=== PATIENT | female | born 1980 | race American Indian/Alaskan Native ===

== ENCOUNTER 2016-09-02 14:20 | Emergency (ER) | payer MEDICAID ==
[2016-09-02 14:41] VITALS: BP 119/82
--- NOTE | 2016-09-02 15:24 | Emergency Department Report ---
HPI - General Chief Complaint: Back Pain/Injury Time Seen by Provider: 09/02/16 15:18 - HPI HPI: Patient is a 35-year-old female who presents the ED complaining of left-sided lower back/flank pain 2 weeks. Patient states about 2 weeks ago she started experiencing some pain with urination and low back pain patient states she went to urgent care and was given sheets to the whole dose of antibiotics. Patient describes pain as sharp intermittent pain throughout the day. She denies fevers/chills/nausea/vomiting/dysuria/vaginal discharge or vaginal bleed/chest pain/shortness of breath/abdominal pain ED Past Medical Hx - Past Medical History Previous Medical History?: Yes Hx Diabetes: Yes (BORDERLINE) Hx GERD: Yes (with diet/relieved with otc medication ) Hx Headaches / Migraines: Yes Hx Psychiatric Treatment: Yes (Depression; Anxiety) Hx HIV: No Additional medical history: psuedo tumor cerbi - Surgical History Past Surgical History?: Yes Hx Breast Surgery: Yes (BREAST REDUCTION) Additional Surgical History: Breast reduction. APPLICATION PROCESSOR shunt placed 2013 - Social History Smoking Status: Never Smoker Substance Use Type: Alcohol, Prescribed - Medications Home Medications: Home Medications Medication Instructions Recorded Confirmed Last Taken Type Aspirin [Baby Aspirin] 81 mg PO QDAY 12/17/12 05/09/15 06/04/15 History Topiramate [Topamax] 50 mg PO BID 12/17/12 05/09/15 06/05/15 History SUMAtriptan SUCCINATE [Imitrex] 100 mg PO Q3H PRN 05/09/15 05/09/15 06/05/15 History Cyclobenzaprine [Flexeril] 10 mg PO QHS PRN #20 tablet 09/02/16 Unknown Rx Ibuprofen [Motrin] 800 mg PO Q8HR PRN #30 tablet 09/02/16 Unknown Rx ED Review of Systems ROS: Stated complaint: SEVERE BACK PAIN Other details as noted in HPI Constitutional: denies: chills, fever Eyes: denies: eye pain, eye discharge, vision change ENT: denies: ear pain, throat pain Respiratory: denies: cough, shortness of breath, wheezing Cardiovascular: denies: chest pain, palpitations Endocrine: no symptoms reported Gastrointestinal: denies: abdominal pain, nausea, diarrhea Genitourinary: denies: urgency, dysuria, discharge Musculoskeletal: denies: back pain, joint swelling, arthralgia Skin: denies: rash, lesions Neurological: denies: headache, weakness, paresthesias Psychiatric: denies: anxiety, depression Hematological/Lymphatic: denies: easy bleeding, easy bruising Physical Exam - Physical Exam Vital Signs: Vital Signs 09/02/16 14:37 Temperature 98.2 F Pulse Rate 79 Respiratory 20 Rate Blood Pressure 119/82 O2 Sat by Pulse 99 Oximetry Physical Exam: GENERAL: Alert and oriented x3, no apparent distress, Normal Gait, atraumatic. HEAD: Head is normocephalic and a-traumatic. NECK: Supple. Non edematous, No carotid bruits. No lymphadenopathy or thyromegaly. No C-spine tenderness. Range of motion. Tenderness palpation of the trapezius muscle LUNGS: Symetrical with respiration, No wheezing, no rales or crackles, CTAB. HEART: S1, S2 present, regular rate and rhythm without murmur, no rubs, no gallops. ABDOMEN: No organomegaly was noted,Positive bowel sounds, soft, and non- distended. . Nontender to palpation on all Quadrants, CVA tenderness bilat. NEUROLOGIC: The patient is cooperative with no focal neurologic deficits. Cranial nerves II through XII are grossly intact SKIN: Warm and dry, No lesions, No ulceration or induration present. ED Course Vital Signs 09/02/16 14:37 Temperature 98.2 F Pulse Rate 79 Respiratory 20 Rate Blood Pressure 119/82 O2 Sat by Pulse 99 Oximetry ED Medical Decision Making - Medical Decision Making 35-year-old female presents with Urinalysis ordered, UPT ordered. Urinalysis positive for leukocyte esterase and white blood cells, UPT negative Discussed findings with patient. Patient given Rocephin 250 mg to treat empirically for a UTI. Patient to go home on Flexeril and Motrin as needed Discussed the patient will follow up with primary care physician. Signs are normal patient is in no acute distress Patient verbally states she understands and will comply to follow-up Critical care attestation.: If time is entered above; I have spent that time in minutes in the direct care of this critically ill patient, excluding procedure time. ED Disposition Clinical Impression: Cystitis Muscle strain of right shoulder Qualifiers: Encounter type: initial encounter Qualified Code(s): S46.911A - Strain of unspecified muscle, fascia and tendon at shoulder and upper arm level, right arm , initial encounter Disposition: DISCHARGED TO HOME OR SELFCARE Is pt being admited?: No Does the pt Need Aspirin: No Condition: Stable Instructions: Flank Pain (ED), Musculoskeletal Pain (ED), Muscle Strain (ED) Additional Instructions: take your medication as prescribed. Follow-up with the primary care physician. Prescriptions: Cyclobenzaprine [Flexeril] 10 mg PO QHS PRN #20 tablet PRN Reason: Muscle Spasm Ibuprofen [Motrin] 800 mg PO Q8HR PRN #30 tablet PRN Reason: Pain Forms: Work/School Release Form Time of Disposition: 16:50
[2016-09-02] MEDS ORDERED: FLEXERIL PO ONE (15:48)
[2016-09-02] MEDS ORDERED: TORADOL IM ONE (15:48)
[2016-09-02 16:12] LABS: Bilirubin,Urine NEG (Negative); Blood,Urine NEG (Negative); Ketones,Urine TR mg/dL (Negative); Leukocyte Esterase,Urine SM (Negative); Mucus,Urine 3+ /HPF; Nitrite,Urine NEG (Negative); Urobilinogen,Urine < 2.0 mg/dL (<2.0)
[2016-09-02] MEDS ORDERED: ROCEPHIN IM ONE (16:21)
[2016-09-02] MEDS ORDERED: XYLOCAINE 1% MPF 5 mL INFILTRATI ONE (16:21)
== END 2016-09-02 16:56 | disposition home or self-care (01) ==
LOC: ED 14:20
DX: S46.911A Strain of unspecified muscle, fascia and tendon at shoulder and upper arm level, right arm, initial encounter (principal); N30.90 Cystitis, unspecified without hematuria; K21.9 Gastro-esophageal reflux disease without esophagitis; G43.909 Migraine, unspecified, not intractable, without status migrainosus; F32.9 Major depressive disorder, single episode, unspecified; F41.9 Anxiety disorder, unspecified; Z79.82 Long term (current) use of aspirin; X58.XXXA Exposure to other specified factors, initial encounter; Y93.89 Activity, other specified; Y99.8 Other external cause status; Y92.89 Other specified places as the place of occurrence of the external cause
CPT/HCPCS: 81001; 81025; 96372; 99282; J0696; J1885

== ENCOUNTER 2018-04-15 13:30 | Outpatient (CLI) | payer MEDICAID | END 2018-04-15 13:31 | disposition home or self-care (01) | LOC: LAB 13:30 | PROVIDERS: ATTEND Nurse Practitioner Women's Health | DX: O36.0130 Maternal care for anti-D [Rh] antibodies, third trimester, not applicable or unspecified (principal); Z3A.28 28 weeks gestation of pregnancy | CPT/HCPCS: 86850; 86900; 86901; J2790 ==

== ENCOUNTER 2018-04-15 14:31 | Outpatient (CLI) | payer MEDICAID ==
[2018-04-15] MEDS ORDERED: LACTATED RINGERS 500 ML IV ONE (15:24)
[2018-04-15 15:59] LABS: Bacteria,Urine 2+ /HPF (Negative); Bilirubin,Urine NEG (Negative); Blood,Urine SM (Negative); Color,Urine Yellow (Yellow); Mucus,Urine 3+ /HPF; Urobilinogen,Urine < 2.0 mg/dL (<2.0)
[2018-04-15 18:25] VITALS: BP 108/72
--- NOTE | 2018-04-15 20:56 | Ultrasound Report ---
FINAL REPORT EXAM: US OB LIMITED HISTORY: placenta location, rule out abruption TECHNIQUE: Ultrasound obstetrical transabdominal limited PRIORS: None. FINDINGS: There is a single live intrauterine gestation. Cardiac activity with heart rate of 145 beats per edgar te in cephalic presentation. The placenta is posterior There is normal sonographic appearance of the placenta. No evidence for placental abruption. IMPRESSION: Single live intrauterine gestation in cephalic presentation No evidence for placental abruption
== END 2018-04-15 19:11 | disposition home or self-care (01) ==
LOC: TRG 14:31
PROVIDERS: ATTEND Obstetrics & Gynecology
DX: O47.03 False labor before 37 completed weeks of gestation, third trimester (principal); Z3A.28 28 weeks gestation of pregnancy
CPT/HCPCS: 59025; 76815; 81001; 96360; J7120; 86850; 86900; 86901; J2790

== ENCOUNTER 2018-05-04 16:21 | Observation (INO) | payer MEDICAID ==
[2018-05-04] MEDS ORDERED: LACTATED RINGERS 500 ML IV ONE (17:02)
[2018-05-04 18:02] LABS: Bilirubin,Urine NEG (Negative); Blood,Urine SM (Negative); Color,Urine Yellow (Yellow); Mucus,Urine FEW /HPF; Protein,Urine <15 mg/dL mg/dL (Negative); Urobilinogen,Urine < 2.0 mg/dL (<2.0)
[2018-05-04] MEDS ORDERED: TYLENOL PO PRN (18:57)
[2018-05-04] MEDS ORDERED: MYLICON PO PRN (18:57)
[2018-05-04] MEDS ORDERED: AMBIEN PO PRN (18:57)
[2018-05-04] MEDS ORDERED: MILK OF MAGNESIA PO PRN (18:57)
[2018-05-04] MEDS ORDERED: COLACE PO PRN (18:57)
--- NOTE | 2018-05-04 18:57 | History and Physical Report ---
History of Present Illness Date of examination: 05/04/18 Date of admission: 05/04/18 18:33 Chief complaint: Leaking fluid History of present illness: Pt is a 37yo BF EDC 07/05/18; EGA 31 1/7 weeks presents to Triage complaining of leaking fluid. Nitrazine inconclusive on exam and u/s EMRE 7.1 Past History Past Medical History: no pertinent history Social history: no significant social history - Obstetrical History Expected Date of Delivery: 07/05/18 Actual Gestation: 31 Week(s) 2 Day(s) : 4 Medications and Allergies Allergies Allergy/AdvReac Type Severity Reaction Status Date / Time latex AdvReac Itching Verified 05/04/18 20:52 Home Medications Medication Instructions Recorded Confirmed Last Taken Type Aspirin [Baby Aspirin] 81 mg PO QDAY 12/17/12 05/09/15 06/04/15 History Topiramate [Topamax] 50 mg PO BID 12/17/12 05/09/15 06/05/15 History SUMAtriptan SUCCINATE [Imitrex] 100 mg PO Q3H PRN 05/09/15 05/09/15 06/05/15 History Cyclobenzaprine [Flexeril] 10 mg PO QHS PRN #20 tablet 09/02/16 Unknown Rx Ibuprofen [Motrin] 800 mg PO Q8HR PRN #30 tablet 09/02/16 Unknown Rx Review of Systems All systems: negative - Vital Signs Vital signs: Vital Signs Pulse BP 90 110/72 05/04/18 16:39 05/04/18 16:39 Temp Pulse Resp BP Pulse Ox 98.1 F 77 16 137/80 05/04/18 17:02 05/04/18 18:38 05/04/18 17:02 05/04/18 18:38 Results Result Diagrams: 05/04/18 20:08 All other labs normal. Ultrasound: report reviewed Assessment and Plan - Patient Problems (1) 31 weeks gestation of Onset Date: 05/04/18 Current Visit: Yes Status: Acute Plan to address problem: A: IUP @ 31 1/7 weeks Suspected leaking fluid P: Will admit for Observation Repeat MERE tomorrow.
[2018-05-04] MEDS: LACTATED RINGERS 1,000 ML IV SCH ×2 (20:08→22:51)
[2018-05-04 20:34] LABS: Basophils % (Auto) 0.3 % (0.0-1.8); Eosinophils # (Auto) 0.2 K/mm3 (0.0-0.4); Eosinophils % (Auto) 1.4 % (0.0-4.3); Hematocrit 31.9 % (30.3-42.9); Hemoglobin 10.4 gm/dl (10.1-14.3); Lymphocytes # (Auto) 3.7 K/mm3 (1.2-5.4); Lymphocytes % (Auto) 27.9 % (13.4-35.0); Mean Corpuscular HGB Conc 33 % (30-34); Monocytes # (Auto) 0.6 K/mm3 (0.0-0.8); Monocytes % (Auto) 4.7 % (0.0-7.3); Platelet Count 233 K/mm3 (140-440); Red Blood Count 4.61 M/mm3 (3.65-5.03); Red Cell Distribution Width 18.2 % (13.2-15.2)
[2018-05-04 20:39] LABS: Mean Corpuscular Volume 69 fl (79-97)
--- NOTE | 2018-05-04 21:05 | Ultrasound Report ---
FINAL REPORT PROCEDURE: US OB LIMITED TECHNIQUE: Real-time limited sonographic examination was performed for evaluation of amniotic fluid for each fetus with image documentation (1 or more fetuses). CPT 40642 HISTORY: LEAKAGE OF FLUID COMPARISON: No prior studies are available for comparison. FINDINGS: A single intrauterine gestation is identified with cephalic presentation. Amniotic fluid index is 7.1 centimeters. heart rate is 148 beats per minute. IMPRESSION: Single live intrauterine gestation with a amniotic fluid index of 7.1 centimeters.
[2018-05-05] MEDS ORDERED: PRENATAL VITAMIN PO SCH (10:00)
[2018-05-05 11:46] VITALS: BP 108/64
--- NOTE | 2018-05-05 12:17 | Ultrasound Report ---
ULTRASOUND OB LIMITED History: Intrauterine , repeat MERE Technique: Transabdominal ultrasound with Doppler interrogation. Gestation: Single Position: Cephalic Amniotic Fluid: Normal MERE = 17.5 cm Heart Rate: 141 BPM
--- NOTE | 2018-05-05 15:31 | Discharge Summary ---
Providers - Providers Date of Admission: 05/04/18 18:33 Date of discharge: 05/05/18 Attending physician: CHE ETIENNE Primary care physician: CHE ETIENNE Hospitalization Reason for admission: IUP - , observation, other (IUP @ 31 1/7 weeks) Other procedures: none complications: none Discharge diagnosis: other (IUP @ 31 2/7 weeks) Pertinent studies: Repeat U/S MERE 17.5 Hospital course: Pt is a 37yo BF EDC 07/05/18; EGA 31 2/7 weeks who presented to Triage complaining of leaking fluid. Nitrazine was inconclusive on exam and u/s MERE 7.1 She was admitted for Observation, and repeat u/s showed MERE 17.5 Pt denied any leaking, and was therefore discharged to home in stable condition. Condition at discharge: Good Disposition: DC-01 TO HOME OR SELFCARE - Discharge Diagnoses (1) 31 weeks gestation of Status: Acute Plan - Provider Discharge Summary Activity: routine, no sex for 6 weeks, no heavy lifting 4 weeks, no strenuous exercise Diet: routine Instructions: routine Additional instructions: [] Smoking cessation referral if applicable(refer to patient education folder for contact #) [] Refer to [facility]'s [facility] Booklet Call your doctor immediately for: * Fever > 100.5 * Heavy vaginal bleeding ( >1 pad per hour) * Severe persistent headache * Shortness of breath * Reddened, hot, painful area to leg or breast * Drainage or odor from incision. * Keep incision clean and dry at all times and follow doctor's instructions regarding bathing/showering - Follow up plan Follow up: CHE ETIENNE MD [Primary Care Provider] - 3 Days Forms: [facility] Discharge Summary, Work/School Excuse Out Patient
== END 2018-05-05 15:55 | disposition home or self-care (01) ==
LOC: TRG 16:21 → LD 18:33
PROVIDERS: ADMIT Obstetrics & Gynecology; ATTEND Obstetrics & Gynecology
DX: O42.913 Preterm premature rupture of membranes, unspecified as to length of time between rupture and onset of labor, third trimester (principal); Z3A.31 31 weeks gestation of pregnancy
CPT/HCPCS: 36415; 76815; 81001; 85025; G0378; J7120

== ENCOUNTER 2021-06-18 15:07 | Emergency (ER) | payer MEDICAID ==
[2021-06-18 15:47] VITALS: BP 110/72
[2021-06-18] MEDS ORDERED: KETOROLAC 10 MG TAB PO ONE (16:37)
[2021-06-18] MEDS ORDERED: CYCLOBENZAPRINE 10 MG TAB PO ONE (16:37)
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
== END 2021-06-18 18:17 | disposition home or self-care (01) ==
LOC: ED 15:07
DX: M54.2 Cervicalgia (principal); M25.512 Pain in left shoulder; K21.9 Gastro-esophageal reflux disease without esophagitis; G43.909 Migraine, unspecified, not intractable, without status migrainosus; D57.00 Hb-SS disease with crisis, unspecified; G40.909 Epilepsy, unspecified, not intractable, without status epilepticus; F41.8 Other specified anxiety disorders; Z98.890 Other specified postprocedural states; Z79.899 Other long term (current) drug therapy; Z91.09 Other allergy status, other than to drugs and biological substances; Y08.89XA Assault by other specified means, initial encounter; Y93.89 Activity, other specified; Y92.89 Other specified places as the place of occurrence of the external cause; Y99.8 Other external cause status
CPT/HCPCS: 70450; 72125; 99284